=== PATIENT | male | born 1955 | race Caucasian/White ===

== ENCOUNTER → 2020-07-23 | Outpatient (CLI) | payer MEDICARE ==
[2014-09-23 16:15] VITALS: BP 148/90
== END ==
LOC: RAD 09:08
DX: Z13.6 Encounter for screening for cardiovascular disorders (principal); Z87.891 Personal history of nicotine dependence

== ENCOUNTER → 2020-07-29 | Outpatient (CLI) | payer MEDICARE ==
[2014-09-23 16:15] VITALS: BP 148/90
== END ==
LOC: LAB 08:53
DX: Z01.812 Encounter for preprocedural laboratory examination (principal); Z20.828 Contact with and (suspected) exposure to other viral communicable diseases